=== PATIENT | male | born 1990 | race Caucasian/White ===

== ENCOUNTER 2019-04-05 15:35 | Inpatient (IN) | payer SELFPAY ==
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
[2019-04-05 16:47] LABS: ABS Basophils 0.1 10^3/ul (0-0.2); ABS Eosinophils 0.1 10^3/ul (0-0.6); ABS Lymphocytes 2.3 10^3/ul (1.0-4.8); ABS Monocytes 0.7 10^3/ul (0-0.8); ABS Neutrophils 6.4 10^3/ul (1.5-7.7); Hematocrit 45 % (42-52); Hemoglobin 15.2 g/dL (14.0-18.0); Mean Corpuscular HGB Conc 34 g/dL (31-36); Mean Corpuscular Hemoglobin 29 pg (27-31); Mean Corpuscular Volume 86 fL (80-94); Mean Platelet Volume 9.6 fL (7.4-10.4); Nucleated Red Blood Cells % 0.1; Platelet Count 171 10^3/uL (150-450); Red Blood Count 5.19 10^6 /uL (4.18-5.48); Red Cell Distribution Width 13 % (10-15); White Blood Count 9.6 10^3/uL (3.5-10.8)
[2019-04-05 17:00] LABS: ALT 25 U/L (7-52); AST 18 U/L (13-39); Albumin 4.5 g/dL (3.2-5.2); Albumin/Globulin Ratio 1.7 (1-3); Alkaline Phosphatase 56 U/L (34-104); Anion Gap 7 mmol/L (2-11); BUN/Creatinine Ratio 8.5 (8-20); Blood Urea Nitrogen 7 mg/dL (6-24); CO2 Carbon Dioxide 25 mmol/L (22-32); Calcium 9.6 mg/dL (8.6-10.3); Chloride 106 mmol/L (101-111); EGFR African American 133.5 (>60); EGFR Non-African American 110.3 (>60); Globulin 2.6 g/dL (2-4); Glucose 100 mg/dL (70-100); Potassium 3.8 mmol/L (3.5-5.0); Sodium 138 mmol/L (135-145); Total Protein 7.1 g/dL (6.4-8.9)
[2019-04-05 17:25] LABS: Alcohol < 10 mg/dL (<10); Salicylate < 2.50 mg/dL (<30)
[2019-04-05 17:39] LABS: TSH (Thyroid Stimulating Horm) 0.62 mcIU/mL (0.34-5.60)
[2019-04-05 17:48] LABS: Acetaminophen < 15 mcg/mL
[2019-04-05 19:45] LABS: Urine Appearance Clear; Urine Bilirubin Negative (Negative); Urine Blood Negative (Negative); Urine Color Yellow; Urine Glucose Negative (Negative); Urine Ketones Trace (Negative); Urine Nitrite Negative (Negative); Urine Protein Negative (Negative); Urine Specific Gravity 1.016 (1.010-1.030); Urine Urobilinogen Negative (Negative)
[2019-04-05 20:05] LABS: Urine Benzodiazepine Screen None Detected (None Detect); Urine Opiates Screen None Detected (None Detect)
[2019-04-05] MEDS ORDERED: Haloperidol TAB* 5 MG PO ONE (23:45)
[2019-04-05] MEDS ORDERED: Haloperidol TAB* 5 MG ONE (23:51)
[2019-04-05] MEDS ORDERED: Al Hydrox/Mg Hydrox/Simet LIQ* 30 ML UDC PO PRN (23:58)
[2019-04-05] MEDS ORDERED: Acetaminophen TAB* 325 MG PO PRN (23:58)
[2019-04-05] MEDS ORDERED: Nicotine* 2MG (FRUIT FLAVOR) GUM PO PRN (23:58)
[2019-04-06] MEDS: Nicotine PATCH 21 MG/24 HR* PATCH TRANSDERM SCH (11:59)
[2019-04-06] MEDS: Vitamin THERAPEUTIC TAB PO SCH (12:01)
[2019-04-06] MEDS: Haloperidol TAB* 5 MG PO PRN (16:41)
[2019-04-06] MEDS: LORazepam TAB(*) 1 MG PO PRN (16:41)
[2019-04-06] MEDS ORDERED: Lurasidone(*) 60 MG TAB PO SCH (17:00)
[2019-04-06] MEDS ORDERED: Lurasidone(*) 20 MG TAB PO SCH (17:00)
[2019-04-06] MEDS ORDERED: hydrOXYzine HCL TAB* 50 MG PO PRN (19:02)
[2019-04-06] MEDS: Nicotine Patch Removal NOTE PATCH OFF SCH (21:24)
[2019-04-06] MEDS: Lithium Carbonate TAB* 300 MG PO SCH (21:26)
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
[2019-04-07] MEDS: LORazepam TAB(*) 1 MG PO PRN (09:04)
[2019-04-07] MEDS: Haloperidol TAB* 5 MG PO PRN (09:04)
[2019-04-07] MEDS: Vitamin THERAPEUTIC TAB PO SCH (09:40)
[2019-04-07] MEDS: Nicotine PATCH 21 MG/24 HR* PATCH TRANSDERM SCH (09:40)
[2019-04-07] MEDS: Lithium Carbonate TAB* 300 MG PO SCH ×4 (09:42→21:36)
--- NOTE | 2019-04-07 14:53 | PN ---
Subjective - Subjective Date of Service: 04/07/19 Service Type: 19502 Hosp care 15 min low complexity Subjective: Milton has been in bed all day after taking Haldol 5 and Ativan 2 this morning after a verbal altercation wherein Milton was asserting another patient was a white supremacist. Milton calmed down and went to bed and slept most of the day. His sister has been contacted and indicates that Milton has been manic for about six months now and is indeed from [place]. She was relieved to know his location and circumstances. He continues on lithium and Latuda. Objective - General Observations Appearance: Disheveled Appears Stated Age: Yes Stature: Overweight Posture: WNL Eye Contact: Average Behavior/Activity: Peculiar - Interaction Observations Attitude Towards Examiner: Cooperative Stated Mood: Expansive, Irritable, Silly Affect: Full Speech Pattern/Tone: Clear Thought Process: Disorganized Perception: WNL Thought Content: Paranoid Hallucination Type: Denies Delusion Type: Persecution, Grandeur - Cognitive Function Orientation: A&O x 4 Level of Consciousness: Awake, Alert, Appropriate Cognition: Impaired Cognition, Impaired Attention/Concentration Estimated Intelligence: Normal Insight: Difficulty Acknowledging Presence of Psyciatric Problems Judgment Within Normal Limits: No Ability to Make Reasonable Decisions: Serverely Impaired - Medication Compliance Cooperative with Inpatient Medication Regimen: Yes - Group Participation Participates in Group Activities: No Assessment - Assessment Merits Inpatient Hospitalization: For Immediate Safety Inpatient DSM-V Dx: F31.2 Clinical Impression: Milton is a 29-year-old white male from [place] who is diagnosed with bipolar 1 disorder, severe, manic with psychotic features. He is delusional and grandiose , fixed on white supremacy and its presence all around him. Plan - Plan Treatment Plan: Name: MILTON LACKEY Birthdate: 1990 [id number] Start lithium and Latuda. Continue to increase Latuda to taget psychotic symptoms. Continued Medication Management: Different Medication Medications: Current Medications Acetaminophen (Tylenol Tab*) 650 mg PO Q4H PRN PRN Reason: PAIN or TEMP > 101 F Al Hydrox/Mg Hydrox/Simethicone (Maalox Plus*) 30 ml PO Q4H PRN PRN Reason: INDIGESTION Haloperidol (Haldol Tab*) 5 mg PO Q6H PRN PRN Reason: AGITATION Last Admin: 04/07/19 09:04 Dose: 5 mg Hydroxyzine HCl (Atarax Tab*) 50 mg PO Q4H PRN PRN Reason: anxiety/insomnia Know[place] Carbonate (Knowles Carbonate Tab*) 600 mg PO BEDTIME [facility] Last Admin: 04/06/19 21:26 Dose: 600 mg Know[place] Carbonate (Knowles Carbonate Tab*) 300 mg PO DAILY [facility] Last Admin: 04/07/19 10:31 Dose: 300 mg Lorazepam (Ativan Tab(*)) 2 mg PO Q4H PRN PRN Reason: Anxiety/agitation Last Admin: 04/07/19 09:04 Dose: 2 mg Lurasidone HCl (Latuda) 120 mg PO 1700 [facility] Multivitamins (Theragran Tab*) 1 tab PO DAILY [facility] Last Admin: 04/07/19 09:40 Dose: Not Given Nicotine (Nicotine Patch 21 Mg/24 Hr*) 1 patch TRANSDERM DAILY [facility] Last Admin: 04/07/19 09:40 Dose: Not Given Nicotine Polacrilex (Nicotine Gum*) 2 mg PO Q2H PRN PRN Reason: CRAVINGS Pharmacy Profile Note (Nicotine Patch Removal Note*) 1 note PATCH OFF 2100 [facility] Last Admin: 04/06/19 21:24 Dose: Not Given
[2019-04-07] MEDS ORDERED: hydrOXYzine HCL TAB* 50 MG PO PRN (15:13)
[2019-04-07] MEDS: Lurasidone(*) 80 MG TAB PO SCH (16:45)
[2019-04-07] MEDS ORDERED: Lurasidone(*) 60 MG TAB PO SCH (17:00)
[2019-04-07] MEDS: Nicotine Patch Removal NOTE PATCH OFF SCH (22:02)
[2019-04-08] MEDS: Nicotine PATCH 21 MG/24 HR* PATCH TRANSDERM SCH (09:19)
[2019-04-08] MEDS: Vitamin THERAPEUTIC TAB PO SCH (09:21)
[2019-04-08] MEDS: Lithium Carbonate TAB* 300 MG PO SCH ×2 (09:27→21:44)
--- NOTE | 2019-04-08 12:31 | PN ---
Subjective - Subjective Date of Service: 04/08/19 Service Type: 89364 Hosp care 15 min low complexity Subjective: Denies any need for physician intervention in course of care at this time. Reports doing well on current meds. Reports he feels he is coming down from his manic episode. Sleeping well he reports, 10 hours last night. Mood reported as "mellow, but a little still anxious." Objective - General Observations Appearance: Neat Appears Stated Age: Yes Stature: WNL Posture: WNL Eye Contact: Average Behavior/Activity: WNL - Interaction Observations Attitude Towards Examiner: Cooperative Stated Mood: Anxious Affect: Full Speech Pattern/Tone: Clear, Appropriate, Normal Volume Thought Process: Coherent Perception: WNL Thought Content: WNL Hallucination Type: None, Denies Delusion Type: None - Cognitive Function Orientation: A&O x 4 Level of Consciousness: Awake, Alert, Appropriate Cognition: WNL Estimated Intelligence: Above Normal Insight: WNL Judgment Within Normal Limits: Yes Ability to Make Reasonable Decisions: Mildly Impaired - Medication Compliance Cooperative with Inpatient Medication Regimen: Yes - Group Participation Participates in Group Activities: Yes Assessment - Assessment Merits Inpatient Hospitalization: For Immediate Safety, For Stabilization, To Initiate Treatment, For Ongoing Evaluation, Consolidate Improvements, For Discharge Planning Clinical Impression: Diagnosis: Type I bipolar disorder, MRE manic and psychotic Milton reports rcovering from joy, with good sleep. Mood remains anxious. No dangerous intent or plan. No psychosis. Engaged in milieu and med compliant with no complaint of side effects. Looking forward to returning home to [facility], following discharge. Plan - Plan Treatment Plan: Name: MILTON LACKEY Birthdate: 1990 [id number] Continue current meds. Encourage groups, milieu. Plan for discharge back to [place]. Continued Medication Management: Different Medication Medications: Current Medications Acetaminophen (Tylenol Tab*) 650 mg PO Q4H PRN PRN Reason: PAIN or TEMP > 101 F Al Hydrox/Mg Hydrox/Simethicone (Maalox Plus*) 30 ml PO Q4H PRN PRN Reason: INDIGESTION Haloperidol (Haldol Tab*) 5 mg PO Q6H PRN PRN Reason: AGITATION Last Admin: 04/07/19 09:04 Dose: 5 mg Hydroxyzine HCl (Atarax Tab*) 50 mg PO Q4H PRN PRN Reason: insomnia [place] Carbonate ([place] Carbonate Tab*) 600 mg PO BEDTIME [facility] Last Admin: 04/07/19 21:36 Dose: 600 mg [place] Carbonate ([place] Carbonate Tab*) 300 mg PO DAILY [facility] Last Admin: 04/08/19 09:27 Dose: 300 mg Lorazepam (Ativan Tab(*)) 2 mg PO Q4H PRN PRN Reason: Anxiety/agitation/insomnia Lurasidone HCl (Latuda) 80 mg PO 1700 [facility] Last Admin: 04/07/19 16:45 Dose: 80 mg Multivitamins (Theragran Tab*) 1 tab PO DAILY [facility] Last Admin: 04/08/19 09:21 Dose: 1 tab Nicotine (Nicotine Patch 21 Mg/24 Hr*) 1 patch TRANSDERM DAILY [facility] Last Admin: 04/08/19 09:19 Dose: 1 patch Nicotine Polacrilex (Nicotine Gum*) 2 mg PO Q2H PRN PRN Reason: CRAVINGS Pharmacy Profile Note (Nicotine Patch Removal Note*) 1 note PATCH OFF 2100 [facility] Last Admin: 04/07/19 22:02 Dose: Not Given - Discharge Plan Discharge Plan: Outpatient Follow Up
[2019-04-08] MEDS: Lurasidone(*) 80 MG TAB PO SCH (17:40)
[2019-04-08] MEDS: LORazepam TAB(*) 1 MG PO PRN (19:29)
[2019-04-08] MEDS: Nicotine Patch Removal NOTE PATCH OFF SCH (22:58)
[2019-04-09] MEDS: Nicotine PATCH 21 MG/24 HR* PATCH TRANSDERM SCH (09:43)
[2019-04-09] MEDS: Lithium Carbonate TAB* 300 MG PO SCH ×2 (09:44→20:34)
[2019-04-09] MEDS: Vitamin THERAPEUTIC TAB PO SCH (09:44)
[2019-04-09] MEDS: Lurasidone(*) 80 MG TAB PO SCH (19:08)
[2019-04-09] MEDS: Nicotine Patch Removal NOTE PATCH OFF SCH (20:36)
[2019-04-09] MEDS: LORazepam TAB(*) 1 MG PO PRN (23:59)
[2019-04-10] MEDS: Vitamin THERAPEUTIC TAB PO SCH (09:14)
[2019-04-10] MEDS: Lithium Carbonate TAB* 300 MG PO SCH ×2 (09:15→20:10)
[2019-04-10] MEDS: Nicotine PATCH 21 MG/24 HR* PATCH TRANSDERM SCH (09:16)
--- NOTE | 2019-04-10 11:08 | PN ---
Subjective - Subjective Date of Service: 04/10/19 Service Type: 61057 Hosp care 25 min moderate complexity Subjective: Prabha is seen in coverage for NPP, Roxy Quiñonez. The patient remains paranoid and slightly bizarre. When I discussed his sister Dot's concerns, which are documented in the SW's note, he responds oddly by telling me a story. "When we went to a museum exhibit to see the statue of [place], everybody was awed and just blown away by the artistry. She, on the other hand, kept talking about the way the statue was positioned and how they encased it. I'm like the statue and she just wants to put this kind of box around me." He did not tolerate lurasidone, claiming that it gave him "spasms right here between my eyes." He states that he was stable for years on 4mg of risperidone, but that the dose was too strong for him. He is willing to augment his lithium with 2mg of risperidone. He denies SI or HI and his delusions are less overt. Objective - General Observations Appearance: Well Groomed Appears Stated Age: Yes Stature: Overweight Posture: WNL Eye Contact: Average Behavior/Activity: Peculiar - Interaction Observations Attitude Towards Examiner: Cooperative Stated Mood: Expansive, Euphoric Affect: Bright Speech Pattern/Tone: Excessive Thought Process: Tangential Thought Content: Paranoid, Grandiose Thought Process: Lethality: Paranoid Ideation Hallucination Type: None Delusion Type: Persecution, Grandeur - Cognitive Function Orientation: A&O x 4 Level of Consciousness: Awake Cognition: WNL Estimated Intelligence: Normal Insight: WNL Judgment Within Normal Limits: No Ability to Make Reasonable Decisions: Moderately Impaired - Medication Compliance Cooperative with Inpatient Medication Regimen: Yes - Group Participation Participates in Group Activities: Yes Assessment - Assessment Merits Inpatient Hospitalization: For Immediate Safety, For Stabilization Inpatient DSM-V Dx: F31.2 Clinical Impression: 29 y.o. single, white, male, [place] national with a history of Bipolar Disorder with multiple previous psychiatric hospitalizations who presents from [facility] where he reported bizarre, psychotic delusions of being chased and persecuted by Nazis. BSU: Problem List - Patient Problems (1) Bipolar affective, manic, severe w/ psych Current Visit: Yes Status: Acute Priority: High Code(s): F31.2 - BIPOLAR DISORD, CRNT EPISODE MANIC SEVERE W PSYCH FEATURES SNOMED Code(s): 116832473 Plan - Plan Treatment Plan: Name: PRABHA LACKEY Birthdate: 1990 [id number] Continue lithium 300mg PO qam and 600mg PO qhs. Will check Li level in AM. D/ C lurasidone and replace with risperidone 2mg PO qhs. Continue to treat on inpatient service. Continued Medication Management: Different Medication Medications: Current Medications Acetaminophen (Tylenol Tab*) 650 mg PO Q4H PRN PRN Reason: PAIN or TEMP > 101 F Al Hydrox/Mg Hydrox/Simethicone (Maalox Plus*) 30 ml PO Q4H PRN PRN Reason: INDIGESTION Haloperidol (Haldol Tab*) 5 mg PO Q6H PRN PRN Reason: AGITATION Last Admin: 04/07/19 09:04 Dose: 5 mg Hydroxyzine HCl (Atarax Tab*) 50 mg PO Q4H PRN PRN Reason: insomnia [place] Carbonate ([place] Carbonate Tab*) 600 mg PO BEDTIME [facility] Last Admin: 04/09/19 20:34 Dose: 600 mg [place] Carbonate ([place] Carbonate Tab*) 300 mg PO DAILY [facility] Last Admin: 04/10/19 09:15 Dose: 300 mg Lorazepam (Ativan Tab(*)) 2 mg PO Q4H PRN PRN Reason: Anxiety/agitation/insomnia Last Admin: 04/09/19 23:59 Dose: 2 mg Lurasidone HCl (Latuda) 80 mg PO 1700 [facility] Last Admin: 04/09/19 19:08 Dose: Not Given Multivitamins (Theragran Tab*) 1 tab PO DAILY [facility] Last Admin: 04/10/19 09:14 Dose: 1 tab Nicotine (Nicotine Patch 21 Mg/24 Hr*) 1 patch TRANSDERM DAILY [facility] Last Admin: 04/10/19 09:16 Dose: 1 patch Nicotine Polacrilex (Nicotine Gum*) 2 mg PO Q2H PRN PRN Reason: CRAVINGS Last Admin: 04/08/19 17:40 Dose: 2 mg Pharmacy Profile Note (Nicotine Patch Removal Note*) 1 note PATCH OFF 2100 [facility] Last Admin: 04/09/19 20:36 Dose: 1 note - Discharge Plan Discharge Plan: Inpatient Hospitalization
[2019-04-10] MEDS: Nicotine Patch Removal NOTE PATCH OFF SCH (20:10)
[2019-04-10] MEDS: risperiDONE TAB* 2 MG PO SCH (20:10)
[2019-04-11] MEDS: Nicotine PATCH 21 MG/24 HR* PATCH TRANSDERM SCH (09:10)
[2019-04-11 09:15] LABS: Lithium 0.38 mmol/L (0.6-1.2)
[2019-04-11] MEDS: Lithium Carbonate TAB* 300 MG PO SCH ×2 (10:06→21:29)
[2019-04-11] MEDS: Vitamin THERAPEUTIC TAB PO SCH (10:06)
[2019-04-11 12:30] LABS: HDL Cholesterol 37.3 mg/dL
--- NOTE | 2019-04-11 16:48 | PN ---
Subjective - Subjective Date of Service: 04/11/19 Service Type: [id number] Hosp care 15 min low complexity Subjective: The patient remains overtalkative with over-inclusive and paranoid thought content. Speech goes to and from several topics such as gender fluidity, racism and conservative movements [place]. He is tolerating the combination of lithium and risperidone well and is open to increasing the lithium dose in order to get his blood level into the therapeutic range. He states that he has an appointment with the ACT team in [facility] this afternoon but is open to staying further in the BSU if necessary. He denies SI or HI. Objective - General Observations Appearance: Well Groomed Appears Stated Age: Yes Stature: Overweight Posture: WNL Eye Contact: Intense Behavior/Activity: WNL - Interaction Observations Attitude Towards Examiner: Cooperative Stated Mood: Elevated, Euphoric Affect: Bright Speech Pattern/Tone: Excessive Thought Process: Tangential Thought Content: Paranoid, Grandiose Thought Process: Lethality: Paranoid Ideation Hallucination Type: None Delusion Type: Persecution, Grandeur - Cognitive Function Orientation: A&O x 4 Level of Consciousness: Awake Cognition: WNL Estimated Intelligence: Normal Insight: WNL Judgment Within Normal Limits: Yes - Medication Compliance Cooperative with Inpatient Medication Regimen: Yes - Group Participation Participates in Group Activities: Yes Assessment - Assessment Merits Inpatient Hospitalization: For Immediate Safety, For Stabilization Inpatient DSM-V Dx: F31.2 Clinical Impression: Milton is a 29-year-old white male from [place] who is diagnosed with bipolar 1 disorder, severe, manic with psychotic features. He is delusional and grandiose , fixed on white supremacy and its presence all around him. Plan - Plan Treatment Plan: Name: MILTON LACKEY Birthdate: 1990 [id number] The patient is on lithium 300/660, resulting in a blood level which is subtherapeutic at 0.38. Will raise the dose to 600mg PO BID. He is augmenting this with risperidone 2mg PO qhs. Continue to treat on the inpatient service. Continued Medication Management: Start Medication Medications: Current Medications Acetaminophen (Tylenol Tab*) 650 mg PO Q4H PRN PRN Reason: PAIN or TEMP > 101 F Al Hydrox/Mg Hydrox/Simethicone (Maalox Plus*) 30 ml PO Q4H PRN PRN Reason: INDIGESTION Haloperidol (Haldol Tab*) 5 mg PO Q6H PRN PRN Reason: AGITATION Last Admin: 04/07/19 09:04 Dose: 5 mg Hydroxyzine HCl (Atarax Tab*) 50 mg PO Q4H PRN PRN Reason: insomnia [place] Carbonate ([place] Carbonate Tab*) 600 mg PO BEDTIME [facility] Last Admin: 04/10/19 20:10 Dose: 600 mg [place] Carbonate ([place] Carbonate Tab*) 300 mg PO DAILY [facility] Last Admin: 04/11/19 10:06 Dose: 300 mg Lorazepam (Ativan Tab(*)) 2 mg PO Q4H PRN PRN Reason: Anxiety/agitation/insomnia Last Admin: 04/09/19 23:59 Dose: 2 mg Multivitamins (Theragran Tab*) 1 tab PO DAILY [facility] Last Admin: 04/11/19 10:06 Dose: 1 tab Nicotine (Nicotine Patch 21 Mg/24 Hr*) 1 patch TRANSDERM DAILY [facility] Last Admin: 04/11/19 09:10 Dose: 1 patch Nicotine Polacrilex (Nicotine Gum*) 2 mg PO Q2H PRN PRN Reason: CRAVINGS Last Admin: 04/08/19 17:40 Dose: 2 mg Pharmacy Profile Note (Nicotine Patch Removal Note*) 1 note PATCH OFF 2100 [facility] Last Admin: 04/10/19 20:10 Dose: 1 note Risperidone (Risperdal*) 2 mg PO BEDTIME [facility] Last Admin: 04/10/19 20:10 Dose: 2 mg - Discharge Plan Discharge Plan: Inpatient Hospitalization Lab Results - Lab Results Lab Results: 04/11/19 08:25 Triglycerides 98 Cholesterol 145 LDL Cholesterol 88 HDL Cholesterol 37.3 [place] 0.38 L
[2019-04-11] MEDS: risperiDONE TAB* 2 MG PO SCH (21:28)
[2019-04-11] MEDS: Nicotine Patch Removal NOTE PATCH OFF SCH (21:38)
[2019-04-11] MEDS: LORazepam TAB(*) 1 MG PO PRN (22:56)
[2019-04-12] MEDS: Vitamin THERAPEUTIC TAB PO SCH (09:08)
[2019-04-12] MEDS: Lithium Carbonate TAB* 300 MG PO SCH ×2 (09:08→20:48)
[2019-04-12] MEDS: Nicotine PATCH 21 MG/24 HR* PATCH TRANSDERM SCH (09:09)
--- NOTE | 2019-04-12 16:28 | PN ---
Subjective - Subjective Date of Service: 04/12/19 Service Type: [id number] Hosp care 25 min moderate complexity Subjective: Milton was pleasant in conversation and was able to advocate for himself to be released. It was also easy to discuss his continued stay here as he does not feel overly confined here. The longer the conversation continued, the more strange it became. The topics are coherent, but they are bizarre. He remains psychotic and manic, although he is improved. He advocates for himself to be discharged sooner rather than later, but he is also accepting of the team's desire to keep him safe and get him home. He asserts "It's only a [address]," but he is comfortable here and accepts that the team is putting his safety first. He is agreeable to staying through the weekend and states he is enjoying his time here. Objective - General Observations Appearance: Neat Appears Stated Age: Yes Stature: Overweight Posture: WNL Eye Contact: Average Behavior/Activity: Accelerated - Interaction Observations Attitude Towards Examiner: Cooperative Stated Mood: Euthymic, Silly Affect: Full Speech Pattern/Tone: Clear Thought Process: Coherent, Goal Directed, Tangential Perception: WNL Thought Content: Preoccupation/Ruminations, Grandiose Hallucination Type: None Delusion Type: None - Cognitive Function Orientation: A&O x 4 Level of Consciousness: Awake, Alert, Appropriate Cognition: Impaired Cognition, Impaired Attention/Concentration, Impaired Ability to Abstract Estimated Intelligence: Normal Insight: WNL Judgment Within Normal Limits: No Ability to Make Reasonable Decisions: Moderately Impaired - Medication Compliance Cooperative with Inpatient Medication Regimen: Yes - Group Participation Participates in Group Activities: Yes Assessment - Assessment Merits Inpatient Hospitalization: For Immediate Safety, For Discharge Planning Inpatient DSM-V Dx: F31.2 Clinical Impression: Milton is a 29-year-old white male from [place] who is diagnosed with bipolar 1 disorder, severe, manic with psychotic features. His delusions and grandiosity have reduced and are most evident when he is speaking at length about topics of his choice. He is improved, but he does remain significantly symptomatic. Plan - Plan Treatment Plan: Name: MILTON LACKEY Birthdate: 1990 [id number] The patient is on lithium 300/660, resulting in a blood level which is subtherapeutic at 0.38. Will raise the dose to 600mg PO BID. He is augmenting this with risperidone 2mg PO qhs. Continue to treat on the inpatient service. 04/13/19 Continue to treat with those medications. Continue hospitalization for safety and prepare for coming discharge to home in [place]. Medications: Current Medications Acetaminophen (Tylenol Tab*) 650 mg PO Q4H PRN PRN Reason: PAIN or TEMP > 101 F Al Hydrox/Mg Hydrox/Simethicone (Maalox Plus*) 30 ml PO Q4H PRN PRN Reason: INDIGESTION Haloperidol (Haldol Tab*) 5 mg PO Q6H PRN PRN Reason: AGITATION Last Admin: 04/07/19 09:04 Dose: 5 mg Hydroxyzine HCl (Atarax Tab*) 50 mg PO Q4H PRN PRN Reason: insomnia [place] Carbonate ([place] Carbonate Tab*) 600 mg PO BID [facility] Last Admin: 04/12/19 09:08 Dose: 600 mg Lorazepam (Ativan Tab(*)) 2 mg PO Q4H PRN PRN Reason: Anxiety/agitation/insomnia Last Admin: 04/11/19 22:56 Dose: 2 mg Multivitamins (Theragran Tab*) 1 tab PO DAILY [facility] Last Admin: 04/12/19 09:08 Dose: 1 tab Nicotine (Nicotine Patch 21 Mg/24 Hr*) 1 patch TRANSDERM DAILY [facility] Last Admin: 04/12/19 09:09 Dose: 1 patch Nicotine Polacrilex (Nicotine Gum*) 2 mg PO Q2H PRN PRN Reason: CRAVINGS Last Admin: 04/08/19 17:40 Dose: 2 mg Pharmacy Profile Note (Nicotine Patch Removal Note*) 1 note PATCH OFF 2100 [facility] Last Admin: 04/11/19 21:38 Dose: 1 note Risperidone (Risperdal*) 2 mg PO BEDTIME [facility] Last Admin: 04/11/19 21:28 Dose: 2 mg - Discharge Plan Discharge Plan: Outpatient Follow Up
[2019-04-12] MEDS: risperiDONE TAB* 2 MG PO SCH (20:47)
[2019-04-12] MEDS: Nicotine Patch Removal NOTE PATCH OFF SCH (20:52)
[2019-04-13] MEDS: Vitamin THERAPEUTIC TAB PO SCH (08:56)
[2019-04-13] MEDS: Lithium Carbonate TAB* 300 MG PO SCH ×2 (08:57→20:21)
[2019-04-13] MEDS: Nicotine PATCH 21 MG/24 HR* PATCH TRANSDERM SCH (08:58)
[2019-04-13] MEDS: risperiDONE TAB* 2 MG PO SCH (20:21)
[2019-04-14] MEDS: Lithium Carbonate TAB* 300 MG PO SCH ×2 (08:55→21:45)
[2019-04-14] MEDS: Vitamin THERAPEUTIC TAB PO SCH (08:55)
[2019-04-14] MEDS: Nicotine PATCH 21 MG/24 HR* PATCH TRANSDERM SCH (08:55)
[2019-04-14] MEDS: LORazepam TAB(*) 1 MG PO PRN (10:08)
--- NOTE | 2019-04-14 15:31 | PN ---
Subjective - Subjective Date of Service: 04/14/19 Service Type: [id number] Hosp care 15 min low complexity Subjective: Milton is found sitting in the milieu at a table with peers. He talks about feeling fine and wanting to be discharged. We talk about how I would prefer he have a person to go home with him to be sure he's safe on the way. He is not in favor of this and believes he would be fine on his own. He then goes on a small rant about his sister who he apparently views as an enemy because "she essentially drove me crazy." Objective - General Observations Appearance: Neat, Well Groomed Appears Stated Age: Yes Stature: Overweight Posture: WNL Eye Contact: Average Behavior/Activity: Peculiar - Interaction Observations Attitude Towards Examiner: Cooperative Stated Mood: Dysphoric, Irritable Affect: Full Speech Pattern/Tone: Clear Thought Process: Coherent, Flight of Ideas Perception: WNL Thought Content: Paranoid Hallucination Type: None Delusion Type: Persecution - Cognitive Function Orientation: A&O x 4 Level of Consciousness: Awake, Alert, Appropriate Cognition: Impaired Attention/Concentration Estimated Intelligence: Normal Insight: WNL Judgment Within Normal Limits: No Ability to Make Reasonable Decisions: Moderately Impaired - Medication Compliance Cooperative with Inpatient Medication Regimen: Yes - Group Participation Participates in Group Activities: Yes Assessment - Assessment Merits Inpatient Hospitalization: For Immediate Safety Inpatient DSM-V Dx: F31.2 Clinical Impression: Milton is a 29-year-old white male from [place] who is diagnosed with bipolar 1 disorder, severe, manic with psychotic features. His delusions and grandiosity have reduced and are most evident when he is speaking at length about topics of his choice. He is improved, but he does remain symptomatic. Plan - Plan Treatment Plan: Name: MILTON LACKEY Birthdate: 1990 [id number] The patient is on lithium 300/660, resulting in a blood level which is subtherapeutic at 0.38. Will raise the dose to 600mg PO BID. He is augmenting this with risperidone 2mg PO qhs. Continue to treat on the inpatient service. 04/13/19 Continue to treat with those medications. Continue hospitalization for safety and prepare for coming discharge to home in [place]. 04/14/19 Continue hospitalization until next week. Continue to introduce idea of SMALL, which he objects to because of the expense. Medications: Current Medications Acetaminophen (Tylenol Tab*) 650 mg PO Q4H PRN PRN Reason: PAIN or TEMP > 101 F Al Hydrox/Mg Hydrox/Simethicone (Maalox Plus*) 30 ml PO Q4H PRN PRN Reason: INDIGESTION Haloperidol (Haldol Tab*) 5 mg PO Q6H PRN PRN Reason: AGITATION Last Admin: 04/07/19 09:04 Dose: 5 mg Hydroxyzine HCl (Atarax Tab*) 50 mg PO Q4H PRN PRN Reason: insomnia [place] Carbonate ([place] Carbonate Tab*) 600 mg PO BID [facility] Last Admin: 04/14/19 08:55 Dose: 600 mg Lorazepam (Ativan Tab(*)) 2 mg PO Q4H PRN PRN Reason: Anxiety/agitation/insomnia Last Admin: 04/14/19 10:08 Dose: 2 mg Multivitamins (Theragran Tab*) 1 tab PO DAILY [facility] Last Admin: 04/14/19 08:55 Dose: 1 tab Nicotine (Nicotine Patch 21 Mg/24 Hr*) 1 patch TRANSDERM DAILY [facility] Last Admin: 04/14/19 08:55 Dose: Not Given Nicotine Polacrilex (Nicotine Gum*) 2 mg PO Q2H PRN PRN Reason: CRAVINGS Last Admin: 04/08/19 17:40 Dose: 2 mg Pharmacy Profile Note (Nicotine Patch Removal Note*) 1 note PATCH OFF 2100 [facility] Last Admin: 04/14/19 00:00 Dose: Not Given Risperidone (Risperdal*) 2 mg PO BEDTIME [facility] Last Admin: 04/13/19 20:21 Dose: 2 mg
[2019-04-14] MEDS: Nicotine Patch Removal NOTE PATCH OFF SCH ×2 (21:45)
[2019-04-14] MEDS: risperiDONE TAB* 2 MG PO SCH (21:45)
[2019-04-15] MEDS: Lithium Carbonate TAB* 300 MG PO SCH ×2 (08:50→20:15)
[2019-04-15] MEDS: Vitamin THERAPEUTIC TAB PO SCH (08:51)
[2019-04-15] MEDS: Nicotine PATCH 21 MG/24 HR* PATCH TRANSDERM SCH (08:52)
[2019-04-15] MEDS: LORazepam TAB(*) 1 MG PO PRN (10:55)
[2019-04-15] MEDS: risperiDONE TAB* 2 MG PO SCH (20:15)
[2019-04-15] MEDS: Nicotine Patch Removal NOTE PATCH OFF SCH (20:16)
[2019-04-16] MEDS: Vitamin THERAPEUTIC TAB PO SCH (08:54)
[2019-04-16] MEDS: Lithium Carbonate TAB* 300 MG PO SCH ×2 (08:54→20:23)
[2019-04-16] MEDS: Nicotine PATCH 21 MG/24 HR* PATCH TRANSDERM SCH (08:55)
[2019-04-16] MEDS: risperiDONE TAB* 2 MG PO SCH (20:23)
[2019-04-16] MEDS: Nicotine Patch Removal NOTE PATCH OFF SCH (20:26)
[2019-04-17] MEDS: Lithium Carbonate TAB* 300 MG PO SCH ×2 (10:09→20:15)
[2019-04-17] MEDS: Vitamin THERAPEUTIC TAB PO SCH (10:10)
[2019-04-17] MEDS: LORazepam TAB(*) 1 MG PO PRN ×2 (12:30→17:49)
--- NOTE | 2019-04-17 13:36 | PN ---
Subjective - Subjective Date of Service: 04/17/19 Service Type: 69622 Hosp care 25 min moderate complexity Subjective: Milton is found lying down in his room. He is feeling dysphoric due to wanting to be discharged and return home. At the same time, he reports that he gets washed in waves of distress that make him feel like he'd rather be than feel this bad. He is reassuring in that he has no plans or timeline and he also recognizes that this mood is not one that will continue forever. He is minimizing the importance of what he has said, however, and its seriousness must not be ignored. Milton is eager for discharge. He would like to know whether he is going Wednesday or Wednesday. He comments that a caravaning situation will be difficult for him and his friend who is coming to get him to navigate. More information is going to be coming from his sister, Sara. He discusses self care as well as groups. He feels like the groups are all the same now and he is growing frustrated with the idea that some of the interventions that are considered universal do not work for him. Objective - General Observations Appearance: Neat Appears Stated Age: Yes Stature: Overweight Posture: WNL Eye Contact: Average Behavior/Activity: Slowed - Interaction Observations Attitude Towards Examiner: Cooperative, Anxious Stated Mood: Dysphoric Affect: Blunted Speech Pattern/Tone: Clear, Normal Volume Thought Process: Coherent Perception: WNL Thought Content: Depressive Thought Process: Lethality: Passive Wish Hallucination Type: None Delusion Type: None - Cognitive Function Orientation: A&O x 4 Level of Consciousness: Awake, Alert, Appropriate Cognition: WNL Estimated Intelligence: Normal Insight: WNL Judgment Within Normal Limits: No Ability to Make Reasonable Decisions: Mildly Impaired - Medication Compliance Cooperative with Inpatient Medication Regimen: Yes - Group Participation Participates in Group Activities: Yes Assessment - Assessment Merits Inpatient Hospitalization: For Immediate Safety, For Discharge Planning, Pending Safe DC Plan Inpatient DSM-V Dx: F31.2 Clinical Impression: Milton is a 29-year-old white male from [place] who is diagnosed with bipolar 1 disorder, severe, manic with psychotic features. His delusions and grandiosity have reduced and are most evident when he is speaking at length about topics of his choice. He is improved, but he does remain symptomatic, now with a depressed edge. Plan - Plan Treatment Plan: Name: MILTON LACKEY Birthdate: 1990 [id number] The patient is on lithium 300/660, resulting in a blood level which is subtherapeutic at 0.38. Will raise the dose to 600mg PO BID. He is augmenting this with risperidone 2mg PO qhs. Continue to treat on the inpatient service. 04/13/19 Continue to treat with those medications. Continue hospitalization for safety and prepare for coming discharge to home in [place]. 04/14/19 Continue hospitalization until next week. Continue to introduce idea of SMALL, which he objects to because of the expense. 04/17/19 Hospitalization will continue. Transportation is being arranged. Continued work on self care is encouraged. Medications: Current Medications Acetaminophen (Tylenol Tab*) 650 mg PO Q4H PRN PRN Reason: PAIN or TEMP > 101 F Al Hydrox/Mg Hydrox/Simethicone (Maalox Plus*) 30 ml PO Q4H PRN PRN Reason: INDIGESTION Haloperidol (Haldol Tab*) 5 mg PO Q6H PRN PRN Reason: AGITATION Last Admin: 04/07/19 09:04 Dose: 5 mg Hydroxyzine HCl (Atarax Tab*) 50 mg PO Q4H PRN PRN Reason: insomnia [place] Carbonate ([place] Carbonate Tab*) 600 mg PO BID [facility] Last Admin: 04/17/19 10:09 Dose: 600 mg Lorazepam (Ativan Tab(*)) 2 mg PO Q4H PRN PRN Reason: Anxiety/agitation/insomnia Last Admin: 04/17/19 12:30 Dose: 2 mg Multivitamins (Theragran Tab*) 1 tab PO DAILY [facility] Last Admin: 04/17/19 10:10 Dose: 1 tab Nicotine (Nicotine Patch 21 Mg/24 Hr*) 1 patch TRANSDERM DAILY [facility] Last Admin: 04/16/19 08:55 Dose: Not Given Nicotine Polacrilex (Nicotine Gum*) 2 mg PO Q2H PRN PRN Reason: CRAVINGS Last Admin: 04/08/19 17:40 Dose: 2 mg Pharmacy Profile Note (Nicotine Patch Removal Note*) 1 note PATCH OFF 2100 [facility] Last Admin: 04/16/19 20:26 Dose: Not Given Risperidone (Risperdal*) 2 mg PO BEDTIME [facility] Last Admin: 04/16/19 20:23 Dose: 2 mg
[2019-04-17] MEDS: Nicotine PATCH 21 MG/24 HR* PATCH TRANSDERM SCH (14:46)
[2019-04-17] MEDS: Nicotine Patch Removal NOTE PATCH OFF SCH (20:14)
[2019-04-17] MEDS: risperiDONE TAB* 2 MG PO SCH (20:15)
[2019-04-18] MEDS: Vitamin THERAPEUTIC TAB PO SCH (08:25)
[2019-04-18] MEDS: Nicotine PATCH 21 MG/24 HR* PATCH TRANSDERM SCH (08:25)
[2019-04-18] MEDS: Lithium Carbonate TAB* 300 MG PO SCH ×2 (08:25→20:15)
[2019-04-18 08:28] VITALS: BP 145/83
[2019-04-18] MEDS: LORazepam TAB(*) 1 MG PO PRN ×2 (13:47→19:06)
--- NOTE | 2019-04-18 16:22 | PN ---
Subjective - Subjective Date of Service: 04/18/19 Service Type: 10567 Hosp care 35 min high complexity Subjective: Milton, Aubrie Zambrano, and I had a phone call with Milton's sister, Sara. The phone meeting went well, with Milton and Sara mending some fences together and coming to an understanding that they care for one another and that Milton's flawed perception of Sara as his enemy is flawed and a symptom of joy. We discussed getting help from family and friends to know that mood shifts were beginning to erupt. Milton was able to identify that his relationships began to move to more adversarial styles when he is becoming manic. He also tends to regard the world as more beautiful and engaging when he is becoming manic. Objective - General Observations Appearance: Neat Appears Stated Age: Yes Stature: Overweight Posture: WNL Eye Contact: Average Behavior/Activity: WNL - Interaction Observations Attitude Towards Examiner: Cooperative, Anxious Stated Mood: Dysphoric Affect: Full Speech Pattern/Tone: Clear Thought Process: Coherent, Goal Directed Perception: WNL Thought Content: Depressive Hallucination Type: None Delusion Type: None - Cognitive Function Orientation: A&O x 4 Level of Consciousness: Awake, Alert, Appropriate Cognition: Impaired Attention/Concentration Estimated Intelligence: Normal Insight: WNL Judgment Within Normal Limits: Yes - Medication Compliance Cooperative with Inpatient Medication Regimen: Yes - Group Participation Participates in Group Activities: Partial Assessment - Assessment Merits Inpatient Hospitalization: For Immediate Safety, For Discharge Planning, Pending Safe DC Plan Inpatient DSM-V Dx: F31.2 Clinical Impression: Milton is a 29-year-old white male from [place] who is diagnosed with bipolar 1 disorder, severe, manic with psychotic features. His delusions and grandiosity have reduced and are most evident when he is speaking at length about topics of his choice. He is improved. Plan - Plan Treatment Plan: Name: MILTON LACKEY Birthdate: 1990 [id number] The patient is on lithium 300/660, resulting in a blood level which is subtherapeutic at 0.38. Will raise the dose to 600mg PO BID. He is augmenting this with risperidone 2mg PO qhs. Continue to treat on the inpatient service. 04/13/19 Continue to treat with those medications. Continue hospitalization for safety and prepare for coming discharge to home in [place]. 04/14/19 Continue hospitalization until next week. Continue to introduce idea of SMALL, which he objects to because of the expense. 04/17/19 Hospitalization will continue. Transportation is being arranged. Continued work on self care is encouraged. 04/18/19 The phone call today left opportunities for improved relationships with family and friends in the future. Milton must locate his car, as it was left parked on the street and he needs to acquire the medications that have been sent to [facility] and are affordable at that location. Milton is encouraged to rest for his trip tomorrow back to [facility]. Medications: Current Medications Acetaminophen (Tylenol Tab*) 650 mg PO Q4H PRN PRN Reason: PAIN or TEMP > 101 F Al Hydrox/Mg Hydrox/Simethicone (Maalox Plus*) 30 ml PO Q4H PRN PRN Reason: INDIGESTION Haloperidol (Haldol Tab*) 5 mg PO Q6H PRN PRN Reason: AGITATION Last Admin: 04/07/19 09:04 Dose: 5 mg Hydroxyzine HCl (Atarax Tab*) 50 mg PO Q4H PRN PRN Reason: insomnia [place] Carbonate ([place] Carbonate Tab*) 600 mg PO BID [facility] Last Admin: 04/18/19 08:25 Dose: 600 mg Lorazepam (Ativan Tab(*)) 2 mg PO Q4H PRN PRN Reason: Anxiety/agitation/insomnia Last Admin: 04/18/19 13:47 Dose: 2 mg Multivitamins (Theragran Tab*) 1 tab PO DAILY [facility] Last Admin: 04/18/19 08:25 Dose: 1 tab Nicotine (Nicotine Patch 21 Mg/24 Hr*) 1 patch TRANSDERM DAILY [facility] Last Admin: 04/18/19 08:25 Dose: Not Given Nicotine Polacrilex (Nicotine Gum*) 2 mg PO Q2H PRN PRN Reason: CRAVINGS Last Admin: 04/08/19 17:40 Dose: 2 mg Pharmacy Profile Note (Nicotine Patch Removal Note*) 1 note PATCH OFF [address] [facility] Last Admin: 04/17/19 20:14 Dose: Not Given Risperidone (Risperdal*) 2 mg PO BEDTIME [facility] Last Admin: 04/17/19 20:15 Dose: 2 mg - Discharge Plan Discharge Plan: Outpatient Follow Up Outpatient Program: [facility] team in [facility]
[2019-04-18] MEDS: risperiDONE TAB* 2 MG PO SCH (20:15)
[2019-04-18] MEDS: Nicotine Patch Removal NOTE PATCH OFF SCH (20:17)
[2019-04-19] MEDS: Vitamin THERAPEUTIC TAB PO SCH (08:02)
[2019-04-19] MEDS: Lithium Carbonate TAB* 300 MG PO SCH (08:02)
[2019-04-19] MEDS: Nicotine PATCH 21 MG/24 HR* PATCH TRANSDERM SCH (08:03)
--- NOTE | 2019-04-19 19:20 | DS ---
CC: ACT Team, [facility]* DISCHARGE SUMMARY: DATE OF ADMISSION: 04/05/19 DATE OF DISCHARGE: 04/19/19 PROVIDER: Roxy Quiñonez NP in Psychiatry. SUPERVISING PHYSICIAN: Dr. Orlando Salter.* (DICTATED BY ROXY QUIÑONEZ NP ) DIAGNOSES: Bipolar I disorder, current episode manic, severe with psychotic features. CONDITION AT THE TIME OF DISCHARGE: Improved, psychiatrically cleared and stable. Milton participated in groups and was social with peers. His sister, Sara, is agreeable to discharge as is Milton. He has done well here psychiatrically. He tolerated new medications including lithium and Risperdal well. He will be attending the [facility] team in [facility]. MENTAL STATUS EXAM: At the time of discharge, Milton is calm and cooperative. He makes good eye contact. He is alert and oriented x4. His grooming is good. His speech pace is normal. His thought processes are logical. He is not psychotic or delusional. He denies AH, VH, SI, and HI. His insight and judgment are fair to good. He is willing to follow up and he is urged to see a therapist when he gets home. DISCHARGE INSTRUCTIONS TO THE PATIENT: A. Medications: 1. [place] carbonate 600 mg twice a day, dispensed 60. 2. Risperdal 2 mg at bedtime, dispensed 30. These were sent to [facility] in [place], [place] for Milton to pickup before he returns to his home. B. Diet is regular. C. Activities as tolerated. He is a smoker, but he has declined a referral to the [facility] Smokers' Quitline at this time. If he decides to access this free service in the future, he can contact the quitline toll free at . There are no studies pending at the time of discharge. D. Followup care: He has a followup care appointment with the ACT Team ([facility] ) who will come to his residence on , 04/20/19 at 11 a.m. E. Disposition: He is returning to his home in [facility]. F. Substance abuse followup is not indicated. HOSPITAL COURSE: Part A: Chief Complaint: "I was too afraid to call the [facility] [place]." The patient is a 29-year-old formerly partnered white male with a history of bipolar 1 disorder, who arrives by ambulance from [facility] on a 9.45 status and admitted on an emergency status after going to [facility] as a walk-in and stating that "they are trying to kill me in [place]." He asserted at that time that someone had poisoned or drugged him and he was speaking of bizarre things. When I met with Milton, he was pleasant and superficially organized. He stated that when he came here from [facility] and drove himself here to [place]; he is not very specific about why [place] was chosen. He states that his credit card got locked and then he was too afraid to call the [facility] [place]. He is afraid of fascists and Nazis and white supremacies. Since Wednesday when he arrived in [place], he states he has made a friend and slept at her house for 1 night, then he has been sleeping in his car. He states that he brought himself here because the hospital and pills are bad in [place]. He states they give him a headache, seizures, night terrors, out of body experiences, and sleep paralysis. He states he is seeking rest and a reduction in the frantic feeling that he has had. Apparently, he has been in the hospital since January and on and has been discharged a few times and then reestablished in the hospital. He states "I hate joy" and seems to have more than a passing acquaintance with bipolar 1 disorder. He eventually seems to just shut down and does not want to speak anymore and so our interview is over. Part B: Psychiatric treatment was rendered. Milton was admitted to the adult behavioral unit and placed on 15-minute checks for safety. He did advance to 30 - minute checks and staff pass privileges as well as comfort room and computer privileges. Once Milton was less psychotic, he did well on the unit. He went to most groups, although by his last 3 days here, he was tired of the groups and he said they all seemed same to him. He generally interacted with peers well. He tolerated the addition of lithium, we started at 300 mg b.i.d. and increased. On 04/11/19, his lithium level when he was at 300 b.i.d. was 0.38. On 04/19/19 his day of discharge when he has been taking 600 mg lithium b.i.d. for several days, his level was 0.68. The process of getting Milton on to a therapeutic level of lithium took several days, we did raise the dose to 600 mg b.i.d. We augmented this with Risperdal 2 mg at bedtime, both of which he stated he likes and was willing to continue. On 04/13/19, we continued to treat with those medications. We continued hospitalization for safety and prepare for coming discharge to home in [place]. On 04/14/19, the hospital will continue until next week. We will continue to introduce the idea of a long acting injectable, which he currently objects to because of the expense. On 04/17/19, transportation was being arranged. We wanted Milton to have a boot trimmer to drive home with which ended up not being the case, but we did schedule a family meeting over the phone with his sister, Sara. On 04/18/19, the phone call left opportunities for improved relationships with family and friends in the future. On his day of discharge, he had to locate his own car as it was left parked on the street and he needs to acquire medications that he has that have been sent to [facility] and are affordable at that location. Milton was encouraged on the to rest for his trip tomorrow back to [facility], which was also a way for him to remain calm and relaxed when he really wanted to be discharged that same day. Milton is taking an atypical antipsychotic Risperdal. His hemoglobin A1c is 5.1, triglycerides are 98, cholesterol is 145, LDL cholesterol is 88, HDL cholesterol is 37.3, TSH is 0.62, and lithium level is 0.68. No consults were entered for Milton. He did well here. He has significantly improved. He was delusional and psychotic upon his admission as well as manic. Upon his discharge, he is somewhat dysphoric, apparently it is a pattern for him to go from being manic into a somewhat depressed mood. He discussed that if he always has to experience shifting moods that he may not want to live forever, but this was also indicated to be more of an intellectual expression of the distress in the face of depression rather than an actual desire with a plan. He is future oriented. He talked about having Delmy with his family and friends. He was much relieved to find out that his friends and family still loved and cared for him. He is eager to get back home and states he will never come back to [facility] because he does not want to be hospitalized. RXOY QUIÑONEZ, ESAU [id number]/[facility] #: [id number] EDDIE
== END 2019-04-19 09:10 | disposition home or self-care (01) | DRG 885 ==
LOC: ED 15:35 → BSU 21:35
PROVIDERS: ADMIT Psychiatry & Neurology Psychiatry; ATTEND Psychiatry & Neurology Psychiatry
DX: F31.2 Bipolar disorder, current episode manic severe with psychotic features (principal); E66.3 Overweight; Z88.6 Allergy status to analgesic agent; Z88.0 Allergy status to penicillin; Z91.018 Allergy to other foods; Z68.33 Body mass index [BMI] 33.0-33.9, adult
CPT/HCPCS: 36415; 80053; 80061; 80178; 80307; 80320; 80329; 81003; 83036; 84443; 85025; 99222; 99231; 99232; 99238; 99284; A9270-GY; G0480